=== PATIENT | female | born 1960 | race Caucasian/White ===

== ENCOUNTER → 2016-05-22 | Day surgery (SDC) | payer OTHER ==
[~2016-05-22] VITALS: Ht 163.8 cm; Wt 80.5 kg
[2016-05-22 13:41] LABS: HCT 41.9 % (37.0-47.0); HGB 14.1 g/dl (12.5-16.0); MCH 29.6 pg (25.0-31.0); MCHC 33.7 g/dL (32.0-36.0); MPV 9.5 fL (6.0-9.5); RBC 4.76 M/uL (4.20-5.40); RDW 13.8 % (11.5-14.0); WBC 15.4 K/uL (4.0-10.5)
== END | disposition home or self-care (01) ==
LOC: FAS 12:55
PROVIDERS: Legal Medicine
DX: G56.01 Carpal tunnel syndrome, right upper limb (principal); G56.11 Other lesions of median nerve, right upper limb; G47.33 Obstructive sleep apnea (adult) (pediatric); Z88.5 Allergy status to narcotic agent; Z88.1 Allergy status to other antibiotic agents; Z90.49 Acquired absence of other specified parts of digestive tract; Z90.89 Acquired absence of other organs; Z90.710 Acquired absence of both cervix and uterus; Z79.1 Long term (current) use of non-steroidal anti-inflammatories (NSAID); Z79.891 Long term (current) use of opiate analgesic; Z79.899 Other long term (current) drug therapy; Z98.890 Other specified postprocedural states
CPT/HCPCS: 36415; J0690; J1170; J2704; J2795; J3010

== ENCOUNTER → 2016-08-07 | Day surgery (SDC) | payer OTHER ==
[~2016-08-07] VITALS: Ht 163.8 cm; Wt 83.5 kg
[2016-08-07 06:46] LABS: HGB 12.6 g/dl (12.5-16.0); MCH 30.4 pg (25.0-31.0); MCHC 34.1 g/dL (32.0-36.0); MCV 89.2 fL (78.0-100.0); MPV 9.7 fL (6.0-9.5); RBC 4.15 M/uL (4.20-5.40); RDW 13.6 % (11.5-14.0); WBC 4.8 K/uL (4.0-10.5)
== END | disposition home or self-care (01) ==
LOC: FAS 06:03
PROVIDERS: Legal Medicine
DX: G56.02 Carpal tunnel syndrome, left upper limb (principal); G62.9 Polyneuropathy, unspecified; M19.90 Unspecified osteoarthritis, unspecified site; R20.9 Unspecified disturbances of skin sensation; R51 Headache; G47.30 Sleep apnea, unspecified; Z87.01 Personal history of pneumonia (recurrent); Z90.710 Acquired absence of both cervix and uterus; Z90.49 Acquired absence of other specified parts of digestive tract; Z87.891 Personal history of nicotine dependence; Z85.828 Personal history of other malignant neoplasm of skin; Z88.5 Allergy status to narcotic agent; Z88.1 Allergy status to other antibiotic agents; Z88.8 Allergy status to other drugs, medicaments and biological substances
CPT/HCPCS: 36415; J0690; J1100; J1885; J2405; J2704; J2795; J3010